=== PATIENT | female | born 1980 | race Caucasian/White ===

== ENCOUNTER 2017-08-12 08:07 | Emergency (ER) | payer OTHER, SELFPAY ==
[2017-08-12] MEDS ORDERED: HYDROcodone/Acetaminophen 10/325 mg Tablet ONE (08:59)
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
[2017-08-12] MEDS ORDERED: Ketorolac Tromethamine 60 MG/2 ML VIAL ONE (12:08)
[2017-08-12] MEDS ORDERED: Cyclobenzaprine 10 MG TAB ONE (12:08)
== END 2017-08-12 12:54 | disposition home or self-care (01) ==
LOC: ERS 08:07
DX: S22.42XA Multiple fractures of ribs, left side, initial encounter for closed fracture (principal); S00.531A Contusion of lip, initial encounter; F17.210 Nicotine dependence, cigarettes, uncomplicated; W01.0XXA Fall on same level from slipping, tripping and stumbling without subsequent striking against object, initial encounter
CPT/HCPCS: 36415; 86317; 96372; J1885

== ENCOUNTER 2017-11-17 13:21 | Emergency (ER) | payer SELFPAY ==
[2017-11-17 15:10] LABS: Pregnancy Test - Urine (BHCG) Negative (Negative); Pregu Control Background? CLEAR/WHITE (CLR/WHITE); Pregu Control Bar Appear? YES (CONTROL BAR); Specific Gravity 1.024 (1.002-1.036)
[2017-11-17 15:11] LABS: #Basophils 0.1 thou/uL (0.0-0.2); #Eosinphils 0.4 thou/uL (0.0-0.7); %Basophils 0.7 % (0.0-1.0); Hemoglobin 11.5 g/dL (12.0-16.0); Mean Corpuscular HGB CONC 31.7 g/dL (32.0-36.0); Mean Corpuscular Hemoglobin 24.7 pg (27.0-31.0); Mean Platelet Volume 8.8 fL (7.4-10.4)
[2017-11-17] MEDS ORDERED: Ondansetron HCl/PF 4 MG/2 ML Vial ONE (15:13)
[2017-11-17 15:19] LABS: Bilirubin Negative (Negative); Blood, Urine Negative (Negative); Clarity CLEAR (Clear); Glucose, Urine (Dipstick) 100 mg/dL (Negative); Leukocyte Trace (Negative); Nitrite Negative (Negative); Protein, Urine (Dipstick) Negative (Neg-Trace); Specific Gravity, Urine 1.025 (1.002-1.036); Urobilinogen 0.2 mg/dL (0.2-1.0); pH, Urine 5.5 (5.0-9.0)
[2017-11-17 15:21] LABS: Bacteria/HPF Rare-Few HPF (None Seen); Hyaline Casts/LPF 0-3 HYALINE CAST LPF (0-3 Hyaline); Pathc Cast-AUWi Flag 0.27 (0-2.49); Squamous Epithelial 0-3 HPF (0-3); WBC/HPF 0-3 HPF (0-3)
[2017-11-17 15:22] LABS: #Monocytes 0.7 thou/uL (0.11-0.59); #Neutrophils 6.9 thou/uL (1.40-6.50); %Eosinophils 3.2 % (0.0-10.0); %Lymphocytes 26.8 % (21.0-51.0); %Monocytes 6.2 % (0.0-10.0); %Neutrophils 63.1 % (42.0-75.0); Platelet Count 274 thou/uL (130-400); RBC Distribution Width 15.2 % (11.5-14.5); Red Blood Cell (RBC) Count 4.64 mill/uL (4.20-5.40)
[2017-11-17 15:33] LABS: ALT (SGPT) 13 U/L (8-55); AST (SGOT) 15 U/L (5-34); Albumin 4.5 g/dL (3.5-5.0); Alkaline Phosphatase 92 U/L (40-150); Anion Gap 9 mmol/L (10-20); BUN (Urea Nitrogen) 15 mg/dL (7.0-18.7); Bilirubin, Total 0.3 mg/dL (0.2-1.2); Calc. Creatinine Clearance 0 mL/min (70-130); Calcium 9.3 mg/dL (7.8-10.44); Carbon Dioxide 24 mmol/L (22-29); Chloride 108 mmol/L (98-107); Estimated GFR-MDRD Greater than 90; Glucose 78 mg/dL (70-105); Potassium 3.7 mmol/L (3.5-5.1); Protein, Total 7.5 g/dL (6.0-8.3); Sodium 137 mmol/L (136-145)
== END 2017-11-17 17:54 | disposition home or self-care (01) ==
LOC: ERS 13:21
DX: R11.2 Nausea with vomiting, unspecified (principal); F17.210 Nicotine dependence, cigarettes, uncomplicated
CPT/HCPCS: 80053; 81003; 81015; 81025; 85025; 96361; 96374; J2405

== ENCOUNTER 2018-03-15 09:21 | Emergency (ER) | payer SELFPAY ==
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
--- NOTE | 2018-03-15 10:43 | CT ---
CT HEAD NONCONTRAST: History: Head injury. Comparison: 10-26-14 FINDINGS: There is no evidence of acute intracranial hemorrhage or infarct. Subtle areas of decreased density w ithin the peripheral white matter, most pronounced in the left frontal lobe, have progressed slightly . There is no mass effect or shift of midline structures. Ventricles appear normal in size, shape, an d position. IMPRESSION: 1. No acute traumatic injury is demonstrated. 2. Subtle decreased density within the peripheral white matter, most pronounced at the left frontal l obe. Findings are nonspecific and could be related to chronic small vessel disease, potentially a vas culitis. POS: [facility]
== END 2018-03-15 10:59 | disposition home or self-care (01) ==
LOC: ERS 09:21
DX: S01.511A Laceration without foreign body of lip, initial encounter (principal); S20.219A Contusion of unspecified front wall of thorax, initial encounter; Z71.6 Tobacco abuse counseling; F17.210 Nicotine dependence, cigarettes, uncomplicated; Y09 Assault by unspecified means; Y93.39 Activity, other involving climbing, rappelling and jumping off
CPT/HCPCS: 70450; 71045; 99406

== ENCOUNTER 2018-04-19 14:28 | Emergency (ER) | payer SELFPAY | END 2018-04-19 15:25 | disposition home or self-care (01) | LOC: ERS 14:28 | DX: H66.92 Otitis media, unspecified, left ear (principal); F17.210 Nicotine dependence, cigarettes, uncomplicated | CPT/HCPCS: 99282 ==

== ENCOUNTER 2018-05-05 08:10 | Emergency (ER) | payer SELFPAY ==
--- NOTE | 2018-05-05 09:55 | RAD ---
FOUR VIEWS LEFT CHEST WALL: INDICATIONS: Bilateral rib pain. COMPARISON: None. FINDINGS: There are healing rib deformities involving the lateral fifth and sixth ribs. No additional healing or displaced rib fracture is evident. IMPRESSION: Healing left fifth and sixth rib fractures. POS: [facility]
== END 2018-05-05 09:23 | disposition home or self-care (01) ==
LOC: ERS 08:10
DX: S29.9XXA Unspecified injury of thorax, initial encounter (principal); F17.210 Nicotine dependence, cigarettes, uncomplicated; X58.XXXA Exposure to other specified factors, initial encounter
CPT/HCPCS: 71110

== ENCOUNTER 2018-12-30 02:41 | Emergency (ER) | payer SELFPAY ==
[2018-12-30 03:01] LABS: #Basophils 0.1 thou/uL (0.0-0.2); #Eosinphils 0.2 thou/uL (0.0-0.7); #Lymphocytes 4.5 thou/uL (1.20-3.40); #Monocytes 0.8 thou/uL (0.11-0.59); %Basophils 0.9 % (0.0-1.0); %Eosinophils 1.9 % (0.0-10.0); %Lymphocytes 35.6 % (21.0-51.0); %Monocytes 6.5 % (0.0-10.0); %Neutrophils 55.1 % (42.0-75.0); Hemoglobin 11.7 g/dL (12.0-16.0); Mean Corpuscular HGB CONC 31.1 g/dL (32.0-36.0); Mean Corpuscular Hemoglobin 24.8 pg (27.0-31.0); Mean Corpuscular Volume 79.7 fL (78.0-98.0); Mean Platelet Volume 9.1 fL (7.4-10.4); Platelet Count 307 thou/uL (130-400); RBC Distribution Width 16.8 % (11.5-14.5); Red Blood Cell (RBC) Count 4.72 mill/uL (4.20-5.40); White Blood Cell (WBC) Count 12.6 thou/uL (4.8-10.8)
[2018-12-30 03:23] LABS: ALT (SGPT) 28 U/L (8-55); AST (SGOT) 29 U/L (5-34); Albumin 4.4 g/dL (3.5-5.0); Alkaline Phosphatase 111 U/L (40-150); Anion Gap 20 mmol/L (10-20); BUN (Urea Nitrogen) 10 mg/dL (7.0-18.7); Bilirubin, Total 0.2 mg/dL (0.2-1.2); Calc. Creatinine Clearance 0 mL/min (70-130); Calcium 8.9 mg/dL (7.8-10.44); Carbon Dioxide 13 mmol/L (22-29); Chloride 109 mmol/L (98-107); Estimated GFR-MDRD Greater than 90; Globulin 3.2 g/dL (2.4-3.5); Glucose 179 mg/dL (70-105); Potassium 3.1 mmol/L (3.5-5.1); Protein, Total 7.6 g/dL (6.0-8.3); Sodium 139 mmol/L (136-145)
[2018-12-30 04:10] LABS: BHCG - Serum Negative (NEGATIVE); Pregs Control Background? CLEAR/WHITE (CLR/WHITE); Pregs Control Bar Appear? YES (CONTROL BAR)
[2018-12-30 04:17] LABS: Acetaminophen Less than 6.0 mcg/mL (10.0-30.0); Alcohol 165 mg/dL (Less than 10); Salicylate Less than 8.0 mg/dL (15.0-30.0)
[2018-12-30] MEDS ORDERED: Ketorolac Tromethamine 30 MG/ML VIAL ONE (04:31)
[2018-12-30] MEDS ORDERED: Ondansetron PF 4 MG/2 ML Vial ONE (04:31)
[2018-12-30] MEDS ORDERED: Adacel (T-DAP) 0.5 ML SYRINGE ONE (04:46)
[2018-12-30] MEDS ORDERED: Lidocaine 1% (PF) 30 ML VIAL ONE (04:55)
[2018-12-30] MEDS ORDERED: Lidocaine 1% w/Epinephrine 1:100K 20 ML VIAL ONE (05:06)
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
[2018-12-30] MEDS ORDERED: ISOVUE-370 76%-LOCM 1 ML ONE (12:58)
== END 2018-12-30 05:35 | disposition home or self-care (01) ==
LOC: ERS 02:41
DX: S02.2XXA Fracture of nasal bones, initial encounter for closed fracture (principal); S01.01XA Laceration without foreign body of scalp, initial encounter; S01.81XA Laceration without foreign body of other part of head, initial encounter; F17.210 Nicotine dependence, cigarettes, uncomplicated; V03.99XA Pedestrian with other conveyance injured in collision with car, pick-up truck or van, unspecified whether traffic or nontraffic accident, initial encounter
CPT/HCPCS: 12032; 70450; 70486; 71045; 71260; 72125; 72170; 74177; 80053; 80307; 84703; 85025; 86850; 86900; 86901; 90471; 90715; 96365; 96375; G0390; J1885; J2001; J2405; Q9966

== ENCOUNTER 2019-01-08 09:07 | Emergency (ER) | payer SELFPAY ==
[2019-01-08] MEDS ORDERED: Cyclobenzaprine 10 MG TAB ONE (10:48)
[2019-01-08] MEDS ORDERED: Ketorolac Tromethamine 30 MG/ML VIAL ONE (10:48)
== END 2019-01-08 11:05 | disposition home or self-care (01) ==
LOC: ERS 09:07
DX: M54.6 Pain in thoracic spine (principal); S01.01XD Laceration without foreign body of scalp, subsequent encounter; F17.210 Nicotine dependence, cigarettes, uncomplicated
CPT/HCPCS: 96372; J1885

== ENCOUNTER 2019-01-18 18:21 | Emergency (ER) | payer SELFPAY ==
[2019-01-18] MEDS ORDERED: traMADol HCl 50 MG TAB ONE (20:10)
[2019-01-18] MEDS ORDERED: Cyclobenzaprine 10 MG TAB ONE (20:10)
== END 2019-01-18 20:29 | disposition home or self-care (01) ==
LOC: ERS 18:21
DX: F07.81 Postconcussional syndrome (principal); F17.210 Nicotine dependence, cigarettes, uncomplicated; Z79.899 Other long term (current) drug therapy
CPT/HCPCS: 99283

== ENCOUNTER 2022-07-02 12:57 | Emergency (ER) | payer SELFPAY ==
[2022-07-02] MEDS ORDERED: Ketorolac Tromethamine 30 MG/ML VIAL ONE (14:41)
[2022-07-02] MEDS ORDERED: Acetaminophen 325 MG TAB ONE (14:41)
[2022-07-02 15:19] LABS: Bilirubin Negative (Negative); Blood, Urine Negative (Negative); Clarity Clear (Clear); Glucose, Urine (Dipstick) Normal (Negative); Ketone, Urine Trace mg/dL (Negative); Leukocyte Negative Leu/uL (Negative); Nitrite Negative (Negative); Pregnancy Test - Urine (BHCG) Negative (Negative); Pregu Control Background? CLEAR/WHITE (CLR/WHITE); Pregu Control Bar Appear? YES (CONTROL BAR); Protein, Urine (Dipstick) Negative (Neg-Trace); Specific Gravity 1.022 (1.002-1.036); Specific Gravity, Urine 1.022 (1.002-1.036); Urobilinogen Normal mg/dL (Less than 2)
[2022-07-02 15:38] LABS: SARS-CoV-2 NAA Rapid Test DETECTED (NotDetected)
== END 2022-07-02 16:27 | disposition home or self-care (01) ==
LOC: ERS 12:57
DX: U07.1 COVID-19 (principal); F17.210 Nicotine dependence, cigarettes, uncomplicated
CPT/HCPCS: 81003; 81025; 96372; 99284; J1885

== ENCOUNTER 2024-03-15 21:38 | Emergency (ER) | payer SELFPAY | END 2024-03-15 23:34 | disposition home or self-care (01) | LOC: ERS 21:38 | DX: T49.4X1A Poisoning by keratolytics, keratoplastics, and other hair treatment drugs and preparations, accidental (unintentional), initial encounter (principal); T20.45XA Corrosion of unspecified degree of scalp [any part], initial encounter; T32.0 Corrosions involving less than 10% of body surface; F17.210 Nicotine dependence, cigarettes, uncomplicated | CPT/HCPCS: 99282 ==

== ENCOUNTER 2024-11-30 08:22 | Emergency (ER) | payer SELFPAY | END 2024-11-30 10:19 | disposition home or self-care (01) | LOC: ERS 08:22 | DX: J02.9 Acute pharyngitis, unspecified (principal); F17.290 Nicotine dependence, other tobacco product, uncomplicated | CPT/HCPCS: 87081; 87428; 87430; 99283 ==